=== PATIENT | female | born 1950 | race Caucasian/White ===

== ENCOUNTER → 2016-08-02 | Outpatient (CLI) | payer MEDICARE, OTHER ==
[~2016-08-02] MED LIST: ACID CONTROL150 M1 PO; BACLOFEN10 MG PO; BYSTOLIC5 MG PO; CALTRATE 600+D1 EACH PO; CARVEDILOL6.25 MG PO; CELEBREX PO; CRESTOR PO; CYPROHEPTADINE H4 MG PO; FLUOXETINE HCL20 M1 PO; LIPITOR20 MG PO; LIPITOR40 MG PO; LOSARTAN POTASS50 MG PO; MELOXICAM15 MG PO; MIRALAX17 G2 PO; MIRAPEX PO; MIRAPEX0.25 MG PO; MOBIC15 MG PO; NAPROXEN PO; OMEPRAZOLE40 M1 PO; OXYCODON-ACETA1 EAC1 PO; PHENERGAN25 MG PO; PRAVASTATIN SOD40 MG PO; PROMETHAZINE12.5 MG PO; PROTONIX PO; SELFEMRA20 MG PO; TOPROL XL50 MG PO; TYLENOL #3 PO; VITAMIN B122500 MCG; VITAMIN B650 M2 PO; VITAMIN D1000 UNI2 PO; ZESTRIL5 MG PO; ZYRTEC PO; ZYRTEC10 M2 PO
--- NOTE | ~2016-08-02 | MY11 ---
[facility] A Service of [facility] RADIOLOGY TEXT RESULTS PATIENT: MARIAH WAGONER LOCATION: [facility] : 50 UNIT #: [id number] AGE: [address]: Funmilayo Ricketts MD SEX: F ORDER DR: [id number] [address] [address] [id number] O MR#: [id number] Acc #: [id number] NAME: MARIAH WAGONER : 1950 SEX: F STUDY DATE/TIME: 08/02/2016 10:00 UNIT: [facility] ROOM: STUDY DESCRIPTION: MY Mammogram Screening Dig Damon Attending Physician: Funmilayo Ricketts M.D. Referring Physician: Funmilayo Ricketts M.D. Ordering Physician: Funmilayo Ricketts M.D. Primary Care Physician: Funmilayo Ricketts M.D. MEDICAL IMAGING REPORT This report is preliminary unless electronic signature is present. EXAM Digital screening mammogram, 08/02/2016 HISTORY 65-year-old woman, no risk elevation. Annual screen. COMPARISON Mammograms date to 10/28/2008, with most recent 04/08/2014. FINDINGS Digital imaging of each breast was completed utilizing a two-view examination of each breast in craniocaudal and mediolateral-oblique projections. Review and interpretation of digital mammograms include a second review in conjunction with FDA-approved CAD device. There is a normal parenchymal presentation bilaterally consistent with the patient's age. There are no breast masses imaged and no parenchymal asymmetry is visualized. There are no suspicious microcalcifications and I see no focal architectural disturbance. IMPRESSION Negative screening digital mammogram. One-year followup recommended. ADDENDUM Breast parenchyma is fatty replaced Patients over the age of 40 are entered into a reminder system with target due date for the next mammogram. A result letter will also be sent to the patient. BIRADS: 1 Negative [facility] A Service of [facility] RADIOLOGY TEXT RESULTS PATIENT: MARIAH WAGONER LOCATION: [facility] : 50 UNIT #: [id number] AGE: [address]: Funmilayo Ricketts MD SEX: F ORDER DR: Dictated by... Jerel Meza M.D. THIS IS AN ELECTRONICALLY VERIFIED REPORT Jerel Meza M.D. at 08/02/2016 3:25 PM HUYEN/dorothy TD: 08/02/2016 15:03 JOB #: [id number] MEDICAL IMAGING REPORT Page 1 of 1
--- NOTE | ~2016-08-02 | BD1 ---
[facility] A Service of [facility] RADIOLOGY TEXT RESULTS PATIENT: MARIAH WAGONER LOCATION: [facility] : 50 UNIT #: [id number] AGE: [address]: Funmilayo Ricketts MD SEX: F ORDER DR: [id number] [address] [address] [id number] O MR#: [id number] Acc #: [id number] NAME: MARIAH WAGONER : 1950 SEX: F STUDY DATE/TIME: 08/02/2016 10:02 UNIT: [facility] ROOM: STUDY DESCRIPTION: BD Dexa Bone Dens 1+ Site Attending Physician: Funmilayo Ricketts M.D. Referring Physician: Funmilayo Ricketts M.D. Ordering Physician: Funmilayo Ricketts M.D. Primary Care Physician: Funmilayo Ricketts M.D. MEDICAL IMAGING REPORT This report is preliminary unless electronic signature is present. EXAM Bone density spine/hip 08/02/2016 HISTORY Age-related osteoporosis. Family history osteoporosis in mother. Nonsmoker. FINDINGS Bone density scanning performed upper 4 lumbar vertebral segments and both proximal femurs [age]-year-old 240 pound female. No comparison. L1-L4: Total bone mineral density 1.229 g/cm2 for T-score 0.4 standard deviation above mean for reference population normal young individuals and Z-score 0.8 standard deviations above mean for age- matched population. Left femur: Total bone mineral density 0.944 g/cm2 for T-score 0.5 standard deviation below mean for reference population normal young individuals and Z-score 0.1 standard deviation below mean for age-matched population. Left femoral neck bone mineral density 0.858 g/cm2 for T-score 1.3 standard deviation below mean for reference population normal young individuals and Z-score 0.6 standard deviation below mean for age-matched population. Right proximal femur total bone mineral density 0.878 g/cm2 for T-score 1.0 standard deviation below mean for reference population normal young individuals and Z-score 0.6 standard deviations below mean for age-matched population. Right femoral neck bone mineral density 0.852 g/cm2 for T-score 1.3 standard deviation below mean for reference population normal young individuals and Z-score 0.6 standard deviations below mean for an age-matched population. [facility] A Service of [facility] RADIOLOGY TEXT RESULTS PATIENT: MARIAH WAGONER LOCATION: [facility] : 50 UNIT #: [id number] AGE: [address]: Funmilayo Ricketts MD SEX: F ORDER DR: IMPRESSION Osteopenia in bilateral femoral necks. Patient felt to be at increased risk for fracture. Treatment options may be considered. Continued surveillance is recommended. Dictated by... Alex Peña M.D. THIS IS AN ELECTRONICALLY VERIFIED REPORT Alex Peña M.D. at 08/03/2016 2:18 PM BEST/corky TD: 08/03/2016 11:15 JOB #: [id number] MEDICAL IMAGING REPORT Page 1 of 1
== END | disposition home or self-care (01) ==
LOC: SMAM 09:23
DX: Z12.31 Encounter for screening mammogram for malignant neoplasm of breast (principal); M81.0 Age-related osteoporosis without current pathological fracture; M85.852 Other specified disorders of bone density and structure, left thigh; M85.851 Other specified disorders of bone density and structure, right thigh
CPT/HCPCS: 77080; G0202

== ENCOUNTER → 2016-08-15 | Outpatient (CLI) | payer MEDICARE, OTHER ==
--- NOTE | ~2016-08-15 | ST ---
Unit #: [id number] #: [id number] Patient: MARIAH WAGONER [id number] [address] [address] [id number] O MR#: [id number] NAME: MARIAH WAGONER : 1950 SEX: F STUDY DATE/TIME: UNIT: [facility] ROOM: STUDY DESCRIPTION: Stress Test Attending Physician: Zhang Sabillon M.D. Referring Physician: Zhang Sabillon M.D. Primary Care Physician: Funmilayo Ricketts M.D. CARDIOLOGY REPORT EXAM Stress Test DESCRIPTION Baseline EKG shows normal sinus rhythm and is within normal limits. The patient exercised only for a total duration of 4 minutes 30 seconds when the test was stopped because of shortness of breath. She denied any chest discomfort, she had achieved a heart rate of 140 beats/minute which is more than submaximal predicted for her age. No ST segment shift was noted, rare PVCs were noted in the exercise and recovery phase. Late in the recovery phase, flattened ST segments were noted. IMPRESSION Less than diagnostic exercise stress test. 1. Very poor exercise tolerance. 2. No exercise-induced angina. 3. No exercise-induced arrhythmias. 4. If clinically suggestive, invasive cardiac studies may be necessary to rule out significant ischemic heart disease. Dictated by... Efraín Vega/rosenda TD: 08/19/2016 06:43 JOB #: [id number] CARDIOLOGY REPORT Page 1 of 1 X Zhang Sabillon MD CARDIOLOGY REPORT
--- NOTE | ~2016-08-15 | ST ---
Unit #: [id number] #: [id number] Patient: MARIAH WAGONER [id number] [address] [address] [id number] O MR#: [id number] NAME: MARIAH WAGONER : 1950 SEX: F STUDY DATE/TIME: 08/15/2016 UNIT: [facility] ROOM: STUDY DESCRIPTION: Cardiac stress test. Attending Physician: Zhang Sabillon M.D. Referring Physician: Zhang Sabillon M.D. Primary Care Physician: Funmilayo Ricketts M.D. CARDIOLOGY REPORT EXAM Cardiac stress test. REASON FOR STUDY Chest pain. PROCEDURE EKG shows normal sinus rhythm, rate 77 beats per minute. The patient exercised on the treadmill according to Fran protocol for a total of 4 minutes 29 seconds, achieving 7 METS with a resting heart rate of 73 beats per minute and a peak heart rate of 132 beats per minute, representing 84% of the maximum predicted heart rate. There were no significant ST-T wave abnormalities noted during the test. The patient was unable to continue exercise at maximum exertion secondary to worsening shortness of breath and leg fatigue. She reports she was unable to continue and the test had to be stopped secondary to that reason. The patient denied any complaints of chest pain. However, again she did experience severe shortness of breath, fatigue and leg weakness during the examination. There was an isolated PVC noted in the recovery period. ASSESSMENT 1. Negative exercise EKG treadmill test. 2. No significant ST-T wave abnormalities noted during the testing 3. However, the patient did have a suboptimal exercise time secondary to extreme shortness of breath. She denied any complaints of chest pain, however. 4. There was an isolated PVC in the recovery period. 5. Her blood pressure did range from 140/90 at rest to as high as 180/110. 6. Further recommendations pending Dr. Sabillon's assessment. Dictated by... Lety Harris A.P.R.N. for Zhang Sabillon M.D. LMW/gz TD: 08/15/2016 11:47 Unit #: [id number] #: [id number] Patient: MARIAH WAGONER JOB #: [id number] CARDIOLOGY REPORT Page 1 of 1 X Lety Harris APRN CARDIOLOGY REPORT
== END | disposition home or self-care (01) ==
LOC: CEKG 08:20
DX: R07.9 Chest pain, unspecified (principal)
CPT/HCPCS: 93017

== ENCOUNTER → 2016-09-19 | Day surgery (SDC) | payer MEDICARE, OTHER ==
--- NOTE | ~2016-09-19 | OR ---
Unit #: [id number] #: [id number] Patient: MARIAH WAGONER [id number] [address] [address] [id number] O MR#: [id number] NAME: MARIAH WAGONER ROOM: Date of Procedure: 09/19/2016 Admission Date: 09/19/2016 Surgeon: Thierry Hudson III, M.D. : 1950 Attending Physician: Thierry Hudson III, M.D. Primary Care Physician: Funmilayo Ricketts M.D. OPERATIVE REPORT PREOPERATIVE DIAGNOSIS Screening colonoscopy. POSTOPERATIVE DIAGNOSES Moderate sigmoid diverticulosis and a right colon submucosal lipoma. PROCEDURE PERFORMED Colonoscopy to cecum. ANESTHESIA MAC. SPECIMENS None. COMPLICATIONS None apparent. INDICATIONS FOR PROCEDURE This is a 65-year-old lady, who is about 12 years out from her last colonoscopy. She is here today for screening purposes. DESCRIPTION OF PROCEDURE After consent was obtained, the patient was brought to the endoscopy suite and placed in the left lateral decubitus position. We titrated the above sedation, I performed a rectal exam and did not feel any masses. The scope was placed within the rectal vault. Air was insufflated. I navigated the scope through a very tortuous sigmoid colon all the way to the cecum. I carefully withdrew the scope. She had moderate sigmoid diverticulosis. She also had a benign-appearing submucosal lipoma in the ascending colon. This was at the most 1 to 1.5 cm in diameter. They had all benign features and was not biopsied. I did not see any other polyps or masses and there were no other mucosal irregularities. The scope was retroflexed within the rectum and no other masses were seen. The scope was then carefully withdrawn. The patient tolerated the procedure without any problems and returned to the recovery room in stable condition. Dictated by... Thierry Hudson III, M.D. VCL/modl Unit #: [id number] #: [id number] Patient: MARIAH WAGONER TD: 09/19/2016 07:39 JOB #: [id number] OPERATIVE REPORT Page 1 of 1 X Thierry Hudson III, MD PROCEDURE OPERATIVE NOTE
== END | disposition home or self-care (01) ==
LOC: COPS 05:21
PROVIDERS: Surgery
PROC: 0DJD8ZZ Inspection of Lower Intestinal Tract, Via Natural or Artificial Opening Endoscopic (ICD-10-PCS; principal; 2016-09-19 07:00)
DX: Z12.11 Encounter for screening for malignant neoplasm of colon (principal); K57.30 Diverticulosis of large intestine without perforation or abscess without bleeding; D17.9 Benign lipomatous neoplasm, unspecified; I10 Essential (primary) hypertension; K21.9 Gastro-esophageal reflux disease without esophagitis; E78.5 Hyperlipidemia, unspecified; J30.9 Allergic rhinitis, unspecified; M19.90 Unspecified osteoarthritis, unspecified site; F41.9 Anxiety disorder, unspecified; E66.9 Obesity, unspecified; Z68.39 Body mass index [BMI] 39.0-39.9, adult; Z79.899 Other long term (current) drug therapy; Z87.01 Personal history of pneumonia (recurrent); Z87.09 Personal history of other diseases of the respiratory system; Z98.51 Tubal ligation status; Z90.710 Acquired absence of both cervix and uterus; Z98.84 Bariatric surgery status
CPT/HCPCS: 82947; J2250